=== PATIENT | male | born 1925 | race Caucasian/White ===

== ENCOUNTER 2016-07-01 13:04 | Inpatient (IN) ==
--- NOTE | 2016-07-01 13:33 | EKG Report ---
Stationary ECG Study [facility] ER Test Date: 07/01/2016 1:16 PM Pat Name: IMAN AMADO Department: Room: Gender: M Utility Person: : 1925 Requested by: Harshad Dill Order Number: [id number] Reading MD: JOVITA SANCHEZ Intervals [place] Rate: 40 P: 999 LA: 0 QRS: -58 QRSD: 154 T: -3 QT: 473 QTc: 404 Interpretive Statements ATRIAL FIBRILLATION WITH SLOW VENTRICULAR RESPONSE INDETERMINATE AXIS RIGHT BUNDLE BRANCH BLOCK LEFT ANTERIOR FASCICULAR BLOCK Electronically Signed On 07-06-16 11:18:44 CDT by JOVITA SANCHEZ [email or web address]
--- NOTE | 2016-07-01 14:02 | XRay Report ---
XR chest 1V portable Indication: Shortness of breath. Comparison: Chest x-ray 07/01/2016; 1147 hours Technique: Portable AP chest was performed. Findings: No significant change in the appearance of the chest is demonstrated. Elevation of the right hemidiaphragm is noted and interstitial stranding and scattered airspace opacities overlying the right hemidiaphragm as well as present within the right cardiophrenic angle are unchanged. Lungs otherwise are clear. Sternal wires are unchanged. The cardiomediastinal silhouette is unchanged. Impression: 1. No adverse interval change in the chest. 07/01/2016 1:59 PM PROCEDURE INTERPRETED AT [facility] DEPARTMENT OF RADIOLOGY Final Report Signed by: Dr. Madhav Barrow
--- NOTE | 2016-07-01 14:04 | Emergency Department Note ---
Pietro Bender Hilary, am scribing for, and in the presence of, Harshad Austin MD 13:30. Geovanna Bender Phillip K, MD, personally performed the services described in this documentation, ascribed by Radha Westbrook in my presence, and it is both accurate and complete . Arrival - Arrival Chief Complaint: Shortness of Breath ED Nursing Triage Note: Brought in by EMS c/o pedal edema and 7 pound gain over 1 week-transferred from [facility] for further evaluation of CHF. Denies CP. +SOB with exertion. Mode of Arrival: Stretcher Limitations: No Limitations Source: Patient, Significant other (), RN Notes Reviewed Time Seen by Provider: 07/01/16 13:25 - History of Present Illness HPI Narrative: Pt is a 89 y/o male transferred from [facility] with c/o SOB and weight gain which onset a 1-2 weeks ago. Pt confirms SOB, weight gain, Cough, DUEÑAS, and ankle swelling but denies chest pain or abdominal pain. Pt is at home on oxygen and has been sleeping in his recliner for a few weeks and his reports he has gained 7lbs in 2 weeks. No other complaints or problems stated in the ED. Pt has a PMHx of HTN, CHF, and COPD. Onset (ago): week(s) Allergies/Adverse Reactions: Allergies Allergy/AdvReac Type Severity Reaction Status Date / Time No Known Allergies Allergy Verified 07/01/16 13:13 Home Medications: Home Medications Medication Instructions Recorded Confirmed Type Albuterol/Ipratropium Neb [Duoneb] 3 ml RESP TX TID 07/01/16 07/01/16 History Allopurinol [Allopurinol] 300 mg PO QAM 07/01/16 07/01/16 History Aspirin EC Tab 81 mg PO QAM 07/01/16 07/01/16 History Bisoprolol Fumarate 2.5 - 5 mg PO QAM 07/01/16 07/01/16 History Budesonide [Pulmicort] 1 mg INH BID 07/01/16 07/01/16 History Cholecalciferol (Vitamin D3) 1,000 unit PO QAM 07/01/16 07/01/16 History [Vitamin D3] Cyanocobalamin (Vitamin B-12) 2,500 mcg SL QAM 07/01/16 07/01/16 History [Vitamin B-12] Digoxin [Digoxin] 125 mcg PO QAM 07/01/16 07/01/16 History Famotidine/Ca Carb/Mag Hydrox 1 tablet PO DAILY PRN 07/01/16 07/01/16 History [Pepcid Complete Chew Tab] Finasteride [Finasteride] 5 mg PO QAM 07/01/16 07/01/16 History Furosemide [Furosemide] 80 mg PO QAM 07/01/16 07/01/16 History Isosorbide Mononitrate [Isosorbide 30 mg PO QAM 07/01/16 07/01/16 History Mononitrate ER] Levothyroxine Tab [Synthroid Tab] 75 mcg PO QAM 07/01/16 07/01/16 History Loratadine Tab [Claritin Tab] 10 mg PO QAM 07/01/16 07/01/16 History Losartan Potassium 25 mg PO QAM 07/01/16 07/01/16 History Montelukast Tab [Singulair Tab] 10 mg PO BEDTIME 07/01/16 07/01/16 History Potassium Chloride 20 meq PO BID 07/01/16 07/01/16 History Tamsulosin [Flomax] 0.4 mg PO QAM 07/01/16 07/01/16 History dilTIAZem HCl [Dilt-Xr] 120 mg PO BID 07/01/16 07/01/16 History Review of System - Review of System 12 point system: reviewed and no additional remarkable complaints except as stated - Review of System Constitutional: Present: weight gain. Absent: fever Respiratory: Present: cough Cardiovascular: Present: dyspnea on exertion. Absent: chest pain Gastrointestinal: Absent: abdominal pain Musculoskeletal: Present: joint swelling (ankle swelling) Neurological: Present: headache Medical,Surgical,& Family Hx - Medical History Cardio: History of: CHF, Hypertension Respiratory: History of: COPD - Social History Smoking Status: Never smoker Frequency of Alcohol Use: None Type of Drug Use: None Exam Vital Signs: Vital Signs Temperature 98.2 F 07/01/16 13:10 Pulse Rate 52 L 07/01/16 13:34 Respiratory Rate 26 H 07/01/16 13:34 Blood Pressure 135/55 07/01/16 13:34 O2 Sat by Pulse Oximetry 96 07/01/16 13:34 - General General appearance: alert, in no apparent distress - Head Head exam: Present: atraumatic, normocephalic - Eye Eye exam: Present: normal appearance, PERRL, EOMI - ENT ENT exam: Present: mucous membranes moist, TM's normal bilaterally. Absent: mucous membranes dry - Neck Neck exam: Present: full ROM, trachea midline. Absent: tenderness - Chest Chest inspection: Present: symmetric chest wall rise. Absent: tenderness - Respiratory Respiratory exam: Present: rales - Cardiovascular Cardiovascular exam: Present: normal rhythm, bradycardia - Abdominal Exam Abdominal exam: Present: soft. Absent: distention - Extremities Exam Extremities exam: Present: full ROM, pedal edema (3+ pedal edema) - Back Exam Back exam: Present: full ROM. Absent: tenderness - Neurological Exam Neurological exam: Present: alert, oriented X3, CN II-XII intact. Absent: motor sensory deficit - Psychiatric Psychiatric exam: Present: normal affect, normal mood - Skin Skin exam: Present: warm, dry, intact, normal color. Absent: rash Course Course Narrative: Patient discussed with Dr. Youssef and the hospitalist. We will check a Lanoxin level in the ED. I feel that his bradycardia due to the bisoprolol and Lanoxin. Results - Labs CBC & BMP: 07/01/16 14:23 07/01/16 14:23 Lab Results: I have reviewed the patients labs Labs: Laboratory Tests 07/01/16 14:23 WBC 8.7 RBC 3.90 Hgb 12.8 L Hct 39.2 L Baso % (Auto) 0.9 H Laboratory Tests 07/01/16 07/01/16 14:23 14:23 BUN 61 H Creatinine 2.30 H BUN/Creatinine Ratio 26.00 H Glucose 125 H Magnesium 3.0 H B-Natriuretic Peptide 234 H Total Protein 6.0 L - Diagnostic Findings Procedure: Chest x-ray: report reviewed by me (1. No adverse interval change in the chest.) Disposition Clinical Impression: atrial fibrillation with bradycardia, Congestive heart failure, Peripheral edema Case discussed with: patient, patient's family Disposition: Still a Patient Condition: Guarded
[2016-07-01 14:40] LABS: Basophils # 0.1 10*3/uL (0.0-0.2); Basophils % 0.9 % (0.0-0.8); Eosinophils # 0.2 10*3/uL (0.0-0.87); Eosinophils % 2.4 % (0.00-10.9); Hematocrit 39.2 VOL% (42.0-52.0); Hemoglobin 12.8 GM/DL (14.0-18.0); Immature Granulocytes % 0.5 %; Immature Granulocytes Absolute 0.04 #; Lymphocytes # 2.3 10*3/uL (1.4-4.0); Lymphocytes % 26.1 % (21.2-54.2); Mean Corpuscular HGB Conc 32.7 GM/DL (32-36); Mean Corpuscular Hemoglobin 33 PG (27-34); Mean Corpuscular Volume 100.5 FL (87-102); Mean Platelet Volume 10.3 FL (9.6-12.0); Monocytes # 0.6 10*3/uL (0.11-0.8); Neutrophils # 5.5 10*3/uL (1.4-7.4); Neutrophils % 63.1 % (38.7-73.9); Platelet Count 216 T/CUMM (130-400); Red Cell Distribution Width 14.8 % (9.3-17.3); White Blood Count 8.7 T/CUMM (4-12)
[2016-07-01] MEDS ORDERED: ACETAMINOPHEN 325 MG TABLET PO PRN ×2 (15:05)
[2016-07-01] MEDS ORDERED: DOCUSATE SODIUM 100 MG CAPSULE PO PRN (15:05)
[2016-07-01] MEDS ORDERED: guaiFENesin/DM ER 600-30 MG TABLET PO PRN (15:05)
[2016-07-01] MEDS ORDERED: ONDANSETRON 4 MG/2 ML VIAL IV PRN (15:05)
[2016-07-01] MEDS ORDERED: MORPHINE 2 MG/1 ML SYRINGE IV PRN (15:05)
[2016-07-01] MEDS ORDERED: diphenhydrAMINE CAP 25 MG CAPSULE PO PRN (15:05)
[2016-07-01] MEDS ORDERED: FAMOTIDINE 20 MG TABLET PO PRN (15:13)
[2016-07-01 15:19] LABS: Alanine Aminotransferase 18 U/L (16-61); Albumin 3.5 G/DL (3.4-5.0); Alkaline Phosphatase 63 U/L (45-117); Aspartate Amino Transferase 13 U/L (0-37); Blood Urea Nitrogen 61 MG/DL (7-18); Glucose 125 MG/DL (74-106); Potassium 5.1 MMOL/L (3.5-5.1); Sodium 136 MMOL/L (136-145); Troponin I Only < 0.015 NG/ML (0.00-0.045)
--- NOTE | 2016-07-01 15:38 | Hospitalist History & Physical ---
Assessment and Plan - Time spent with patient Time spent with patient: Greater than 30 minutes (I saw and examed pt in his room. I reviewed his lab results. I reviewed his OSH lab results and report. Time spent: 55 minutes.) (1) Acute on chronic congestive heart failure Status: Acute Assessment and plan: Acute on chronic CHF in a setting of renal failure. Check echo. Consult Cardiology. Daily weight, monitor I&O. IV lasix one dose today. Further diuretics choice per Cardiology and Nephrology. Current Visit: Yes (2) Acute renal failure Status: Acute Assessment and plan: Monitor BUN/Cr. US kidney in am. Consult Nephrology in am. Current Visit: Yes (3) Atrial fibrillation Status: Acute Assessment and plan: Consult cardiology to see if pt is a good candidate to start anticoagulation. Current Visit: Yes (4) Bradycardia Status: Acute Assessment and plan: Tele monitoring. Hold home meds beta karen. Current Visit: Yes (5) Hypertension Status: Acute Assessment and plan: Resume other home meds appropriately. Monitor BP. Current Visit: Yes (6) COPD (chronic obstructive pulmonary disease) Status: Acute Assessment and plan: Resume home meds. Current Visit: Yes (7) Peripheral edema Status: Acute Assessment and plan: Consult Cardiology and Nephrology for diuretics choice. Current Visit: Yes History of Present Illness Chief complaint: Shortness of breath History of present illness: Mr. Valderrama is a 89 year old male with HTN CHF COPD former smoker developed worsening shortness of breath along with ankle, foot and leg swelling during past two weeks. Pt gained about 7 pounds. Pt can not sleep flat in bed. Has some cough, No fever, wheezing, chest pain, N/V/D, abdominal pain, dysuria or rash. Urine output is ok. No other major discomfort complaints. Upon ER eval at OSH, he was found to have atrial fibrillation with bradycardia. He was then sent to our ER for further eval. ROS: A 10 point system review is negative except listed as above. Allergy: NKDA PMH: HTN CHF COPD Past surgical history: Cardiac bypass surgery Family history: HTN Social history: Living at home. Deny current smoking, drinking or illicit drug usage. Current home meds: See med recs. Home Medications Medication Instructions Recorded Confirmed Type Albuterol/Ipratropium Neb [Duoneb] 3 ml RESP TX TID 07/01/16 07/01/16 History Allopurinol [Allopurinol] 300 mg PO QAM 07/01/16 07/01/16 History Aspirin EC Tab 81 mg PO QAM 07/01/16 07/01/16 History Bisoprolol Fumarate 2.5 - 5 mg PO QAM 07/01/16 07/01/16 History Budesonide [Pulmicort] 1 mg INH BID 07/01/16 07/01/16 History Cholecalciferol (Vitamin D3) 1,000 unit PO QAM 07/01/16 07/01/16 History [Vitamin D3] Cyanocobalamin (Vitamin B-12) 2,500 mcg SL QAM 07/01/16 07/01/16 History [Vitamin B-12] Digoxin [Digoxin] 125 mcg PO QAM 07/01/16 07/01/16 History Famotidine/Ca Carb/Mag Hydrox 1 tablet PO DAILY PRN 07/01/16 07/01/16 History [Pepcid Complete Chew Tab] Finasteride [Finasteride] 5 mg PO QAM 07/01/16 07/01/16 History Furosemide [Furosemide] 80 mg PO QAM 07/01/16 07/01/16 History Isosorbide Mononitrate [Isosorbide 30 mg PO QAM 07/01/16 07/01/16 History Mononitrate ER] Levothyroxine Tab [Synthroid Tab] 75 mcg PO QAM 07/01/16 07/01/16 History Loratadine Tab [Claritin Tab] 10 mg PO QAM 07/01/16 07/01/16 History Losartan Potassium 25 mg PO QAM 07/01/16 07/01/16 History Montelukast Tab [Singulair Tab] 10 mg PO BEDTIME 07/01/16 07/01/16 History Potassium Chloride 20 meq PO BID 07/01/16 07/01/16 History Tamsulosin [Flomax] 0.4 mg PO QAM 07/01/16 07/01/16 History dilTIAZem HCl [Dilt-Xr] 120 mg PO BID 07/01/16 07/01/16 History Allergies Allergy/AdvReac Type Severity Reaction Status Date / Time No Known Allergies Allergy Verified 07/01/16 13:13 Medical,Surgical,& Family Hx - Medical History Cardio: History of: CHF, Hypertension Respiratory: History of: COPD - Social History Smoking Status: Never smoker Frequency of Alcohol Use: None Type of Drug Use: None 12 point system: reviewed and no additional remarkable complaints except as stated Exam - Constitutional Vitals: Period Temp Pulse Resp BP Sys/Merino Pulse Ox Last 24 Hr 22 Exam: GENERAL: Lying in bed with head elevated for about 30 degree. AAOx3. HEENT: Pupils equally round and reactive to light, conjunctivae clear.Oropharynx pink, with moist mucous membranes. Normal lips, teeth and gums. NECK: Supple without mass. HEART: Irregularly irregular, no gallops. CHEST: Normal shape, fair air movement, no retractions. LUNGS: Decreased breath sound at b/l lower lobes. ABDOMEN: Soft, nontender, and no hepatosplenomegaly. SKIN: No rash. Pale. Non pitting edema on b/l legs. NEURO: No gross motor deficits noted Results - Labs CBC & BMP: 07/01/16 14:23 07/01/16 14:23
[2016-07-01] MEDS: ALBUTEROL/IPRATROPIUM 3 ML NEB RESP TX SCH ×2 (15:55→19:20)
[2016-07-01] MEDS ORDERED: FUROSEMIDE 40 MG/4 ML VIAL IV SCH (16:00)
--- NOTE | 2016-07-01 16:02 | Ultrasound Report ---
History: Lower extremity edema Date: 07/01/2016 Study: Bilateral lower extremity Doppler venous study Comparison exam: No previous Color Doppler, wave form analysis, and compression analysis of the deep veins of both lower extremities from the common femoral vein level through the popliteal vein level shows that the veins are readily compressible. There is no abnormal intraluminal material to suggest thrombus. Waveform analysis is unremarkable. Ultrasound images were captured and archived Impression: Normal bilateral lower extremity color flow venous Doppler study. No evidence of acute DVT PROCEDURE INTERPRETED AT [facility] DEPARTMENT OF RADIOLOGY Final Report Signed by: Dr. Rakel King
--- NOTE | 2016-07-01 16:37 | Ultrasound Report ---
Exam: US renal Bilateral Date: 07/01/2016 3:51 PM Comparison: 07/02/2013 Indication: Renal failure Technique:[Multiple transabdominal real-time scans were obtained THE kidneys. Ultrasound images were captured and stored. Color flow scans were obtained.] Findings: The right kidney measures 134 x 58 x 55 mm. The left kidney measures 114 x 67 x 51 mm. No hydronephrosis with increased parapelvic fat deposition with generalized cortical loss. Multiple simple appearing renal cysts are noted including a 38 mm upper pole and 50 mm lower pole right and 34 mm and 18 mm mid pole left renal cysts. Color flow documented in the kidneys. 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 No hydronephrosis with multiple simple appearing renal cysts. PROCEDURE INTERPRETED AT [facility] DEPARTMENT OF RADIOLOGY Final Report Signed by: Dr. Fernanda Boswell
[2016-07-01] MEDS: PANTOPRAZOLE 40 MG TABLET PO SCH (18:11)
[2016-07-01] MEDS: FUROSEMIDE 40 MG/4 ML VIAL IV SCH (18:11)
--- NOTE | 2016-07-01 18:45 | Cardiology Consult Note ---
Assessment and Plan - Time spent with patient Time spent with patient: Greater than 30 minutes (1) Ascites Status: Acute Assessment and plan: This may be related to right heart failure or pulmonary hypertension. We will get ultrasound of the abdomen and follow-up on his echocardiogram for evidence of portal hypertension. Current Visit: Yes (2) Pulmonary hypertension Status: Acute Assessment and plan: This is somewhat chronic and certainly may now be exacerbating his edema and what may be ascites. He is had this previously and was significant before. Current Visit: Yes (3) Elevated brain natriuretic peptide (BNP) level Status: Acute Assessment and plan: This may be multifactorial. This may indicate left ventricular dysfunction or diastolic dysfunction which by history he does have. His chest x-ray does not reveal overt cardiovascular congestion though. Other issues may be his renal dysfunction and poorly hypertension. Current Visit: Yes (4) Bradycardia Status: Acute Assessment and plan: This may be secondary to his digoxin which has been stopped. Current Visit: Yes (5) Hypertension Status: Chronic Assessment and plan: At present this is fairly stable we will monitor. Current Visit: Yes (6) COPD (chronic obstructive pulmonary disease) Status: Chronic Assessment and plan: This is chronic and certainly exacerbate poorly hypertension. He is on home oxygen. Current Visit: Yes (7) Atrial fibrillation Status: Acute Assessment and plan: The exact duration of this is unknown. We'll try to ECGs from Dr. Richardson's office. Current Visit: Yes (8) Chronic renal insufficiency Status: Chronic Assessment and plan: This is chronic and dates back previously. Current Visit: Yes (9) Coronary artery disease Status: Chronic Assessment and plan: Clinically this is stable without angina symptomatology or anginal equivalent. Current Visit: Yes (10) History of coronary artery bypass graft Status: Chronic Assessment and plan: He had this in 2004 as discussed in history present illness. Current Visit: Yes (11) Abnormal ECG Status: Acute Current Visit: Yes (12) Right bundle branch block Status: Acute Current Visit: Yes (13) Left anterior fascicular block Status: Acute Current Visit: Yes (14) Peripheral edema Status: Acute Current Visit: Yes History of Present Illness - Data of Consult Patient: new to practice Consult date: 07/01/16 Requesting Physician: Lefty Haywood Primary care physician: Roman Richardson - Consult Narrative Reason for consult: short of breath History of present illness: Mr. Valderrama is a 89 year old male who presented to the emergency room having some progressive shortness of breath PND or orthopnea and lower extremity edema. He also states that he has abdomen has been increasing in girth and his weight is been increasing. He was recently seen by Dr. Richardson his PCP and increase his Lasix without any improvement. He presented to the emergency room with these complaints where he was evaluated. He denied any chest pain or anginal equivalent. He's had no GI complaints. In the emergency room his CBC was unremarkable. His chemistries revealed his potassium in the upper limits of normal with elevated magnesium and a creatinine of 2.3 BUN is 61. His troponin was nondetectable with a BNP of 234. History Mahendra level was 1.6. Cardiopulmonary abnormalities. It appears that his chest x-ray does not indicate any acute cardiopulmonary abnormalities. He has a persistently elevated right hemidiaphragm. His venous Doppler study was unremarkable. His ECG reveals atrial fibrillation with slow ventricular response. Slow ventricular response may be related to his digoxin. We'll check his thyroid function. We'll await his echocardiogram results. In reviewing some of his old medical records he appears to be in the hospital with episodes of heart failure turned out to be probably diastolic left ventricular dysfunction as well as significant if not severe pulmonary hypertension. He had been on home oxygen and increased use of his oxygen last few days. He has had prior coronary disease and bypass surgery February 2000 following the LAD, and apparently a sequential graft to the circumflex OM and right PL branch. Based on the Doppler report though this could've actually been 2 separate vein grafts. CC: Lefty Haywood MD - Home Medications and Allergies Home Medications: Home Medications Medication Instructions Recorded Confirmed Type Albuterol/Ipratropium Neb [Duoneb] 3 ml RESP TX TID 07/01/16 07/01/16 History Allopurinol [Allopurinol] 300 mg PO QAM 07/01/16 07/01/16 History Aspirin EC Tab 81 mg PO QAM 07/01/16 07/01/16 History Bisoprolol Fumarate 2.5 - 5 mg PO QAM 07/01/16 07/01/16 History Budesonide [Pulmicort] 1 mg INH BID 07/01/16 07/01/16 History Cholecalciferol (Vitamin D3) 1,000 unit PO QAM 07/01/16 07/01/16 History [Vitamin D3] Cyanocobalamin (Vitamin B-12) 2,500 mcg SL QAM 07/01/16 07/01/16 History [Vitamin B-12] Digoxin [Digoxin] 125 mcg PO QAM 07/01/16 07/01/16 History Famotidine/Ca Carb/Mag Hydrox 1 tablet PO DAILY PRN 07/01/16 07/01/16 History [Pepcid Complete Chew Tab] Finasteride [Finasteride] 5 mg PO QAM 07/01/16 07/01/16 History Furosemide [Furosemide] 80 mg PO BID 07/01/16 07/01/16 History Isosorbide Mononitrate [Isosorbide 30 mg PO QAM 07/01/16 07/01/16 History Mononitrate ER] Levothyroxine Tab [Synthroid Tab] 75 mcg PO 0700 07/01/16 07/01/16 History Loratadine Tab [Claritin Tab] 10 mg PO QAM 07/01/16 07/01/16 History Losartan Potassium 25 mg PO QAM 07/01/16 07/01/16 History Montelukast Tab [Singulair Tab] 10 mg PO BEDTIME 07/01/16 07/01/16 History Potassium Chloride 20 meq PO BID 07/01/16 07/01/16 History Tamsulosin [Flomax] 0.4 mg PO QAM 07/01/16 07/01/16 History dilTIAZem HCl [Dilt-Xr] 120 mg PO BID 07/01/16 07/01/16 History Allergies/Adverse Reactions: Allergies Allergy/AdvReac Type Severity Reaction Status Date / Time No Known Allergies Allergy Verified 07/01/16 13:13 Review of systems: Constitutional: Denies anorexia, chills, fatigue, fever, frequent falls, night sweats, weight gain, weight loss. He has been gaining weight with fluid. Eyes: Denies visual changes or loss of vision Ears: Denies decreased hearing, vertigo Nose, mouth and throat: Denies dysphagia, epistaxis, headaches, neck pain, tongue swelling, Neck: Denies thyromegaly or masses. No stiffness. History of hypothyroidism. Cardiovascular: as per HPI Respiratory: As noted in history of present illness he is had dyspnea on exertion, PND or orthopnea. Denies cough hemoptysis, wheezing, snoring Gastrointestinal: Denies abdominal pain, constipation, dyspepsia, dysphagia, hematemesis, hematochezia, melena, nausea, vomiting. He has been having increased abdominal girth. Genitourinary: Denies dysuria, hematuria, nocturia Musculoskeletal: Denies arthralgias, joint swelling, muscle weakness, myalgias Neurological: denies abnormal speech, confusion, convulsions, frequent falls, headaches, memory loss, syncope. He does note that he has a little balance issues at times. Psychiatric: Denies anxiety, confusion, depression Endocrine: Denies cold intolerance, fatigue, heat intolerance. Has a history of hypothyroidism. He is on replacement therapy. Hematologic/Lymphatic: Denies easy bleeding, easy bruising Dermatologic: Denies Rash, itching, shingles Medical,Surgical,& Family Hx - Medical History Cardio: History of: CHF, CAD, Hypertension Psychological: History of: Depression Neurology: No history of: Cerebrovascular Accident, Dementia, Seizures HEENT: No history of: Eye Problem Endocrine: History of: Thyroid Disorder Respiratory: History of: COPD, Pulmonary Hypertension, 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) Renal: History of: Renal Failure (chronic element of renal insufficiency.) Genitourinary: History of: Kidney Stones Gastrointestinal: History of: GI Problems (constipation) No history of: Gastrointestinal Bleed, Hepatitis, Liver Problems Musculoskeletal: History of: Back/Neck Problems Hematology: No history of: Anemia, Blood Disorders - Surgical History Cardiac Surgeries: Sugical HX of: Cardiac Surgery (2004 - cabg) Thoracic Surgeries: Surgical HX of;: Lithotripsy HEENT Surgeries: Surgical HX of: Tonsilectomy & Adenoidectomy Abdominal Surgeries: Surgical HX of: Abdominal Surgery (2014 - Peritoneal cavity infection - [place]) - Family History Family History: Reports;: Family Cancer (mother - colon and breast), Family Heart Disease (father -), Family Stroke (mother?) Denies;: Family Diabetes, Family Hematology, Family Hypertension, Family Psychiatric Problems - Social History Smoking Status: Never smoker Frequency of Alcohol Use: None Type of Drug Use: None Marital Status: Lives With:: Spouse Functional capacity: independent ambulation Physical Examination Vital Signs Temp Pulse Resp BP Pulse Ox 98.2 F 55 L 22 146/56 92 L 07/01/16 13:10 07/01/16 13:10 07/01/16 13:10 07/01/16 13:10 07/01/16 13:10 Other: General appearance: Over weight, no acute distress Head exam: normal inspection, atraumatic Eye exam: Pupils are equal and reactive. EOMI. There is no trauma. Moist mucous membranes. Ear exam: Anatomically normal. Normal auditory acuity to conversation. Oral exam: No significant oral lesions. Chronic dental issues. Neck exam: normal inspection no JVD. No carotid bruit. Trachea is in midline. Respiratory exam: clear to auscultation bilaterally posteriorly and anteriorly with good air movement. No rales, rhonchi or wheezes. Cardiovascular exam: regular rate and rhythm, with 2/6 systolic murmur over the right and left upper chest but no gallop or rub. No precordial lift. No bruits over the major arteries. Chest wall/torso: Anatomically normal. No tenderness, deformity Peripheral Pulses: One to 2 + throughout. GI/Abdominal exam: normal bowel sounds, soft and nontender, no abdominal bruits or pulsatile masses. His abdomen is protuberant in question ascites. Musculoskeletal/Extremities exam: One to 2+ pitting pretibial and ankle edema, atraumatic Neurological exam: alert, oriented X3. There is no gross neurologic deficits. Psychiatric exam: normal affect, normal mood. Cognitive function is grossly intact. Skin exam: normal color, warm. No rashes or other skin lesions. Result/EKG - Labs CBC & BMP: 07/01/16 14:23 07/01/16 14:23 Labs: Laboratory Results - last 24 hr 07/01/16 07/01/16 07/01/16 14:23 14:23 14:23 WBC 8.7 RBC 3.90 Hgb 12.8 L Hct 39.2 L MCV 100.5 MCH 33 MCHC 32.7 RDW 14.8 Plt Count 216 MPV 10.3 Neut % (Auto) 63.1 Lymph % (Auto) 26.1 Edmunds % (Auto) 7.0 Eos % (Auto) 2.4 Baso % (Auto) 0.9 H Neut # (Auto) 5.5 Lymph # (Auto) 2.3 Edmunds # (Auto) 0.6 Eos # (Auto) 0.2 Baso # (Auto) 0.1 Immature Gran % 0.5 Nucleated RBC % 0.0 Immature Gran # 0.04 Nucleated RBCs # 0.00 Sodium 136 Potassium 5.1 Chloride 101 Carbon Dioxide 28 Anion Gap 12.1 BUN 61 H Creatinine 2.30 H GFR Calculation 29 BUN/Creatinine Ratio 26.00 H Glucose 125 H Calculated Osmolality 289.0 Calcium 9.0 Magnesium 3.0 H Total Bilirubin 0.80 AST 13 ALT 18 Alkaline Phosphatase 63 Troponin I < 0.015 B-Natriuretic Peptide 234 H Total Protein 6.0 L Albumin 3.5 Globulin 2.5 Albumin/Globulin Ratio 1.4 Digoxin 07/01/16 14:23 WBC RBC Hgb Hct MCV MCH MCHC RDW Plt Count MPV Neut % (Auto) Lymph % (Auto) Edmunds % (Auto) Eos % (Auto) Baso % (Auto) Neut # (Auto) Lymph # (Auto) Edmunds # (Auto) Eos # (Auto) Baso # (Auto) Immature Gran % Nucleated RBC % Immature Gran # Nucleated RBCs # Sodium Potassium Chloride Carbon Dioxide Anion Gap BUN Creatinine GFR Calculation BUN/Creatinine Ratio Glucose Calculated Osmolality Calcium Magnesium Total Bilirubin AST ALT Alkaline Phosphatase Troponin I B-Natriuretic Peptide Total Protein Albumin Globulin Albumin/Globulin Ratio Digoxin 1.60 - Impressions Impressions: Atrial fibrillation with slow ventricular response. He has a right bundle branch block with probable left anterior fascicular block.
[2016-07-01] MEDS: BUDESONIDE 0.5 MG/2 ML NEB RESP TX SCH (19:21)
[2016-07-01] MEDS: MONTELUKAST 10 MG TABLET PO SCH (20:34)
[2016-07-01] MEDS: POTASSIUM CHLORIDE 20 MEQ TABLET PO SCH (20:34)
[2016-07-02 04:08] LABS: Basophils % 0.5 % (0.0-0.8); Eosinophils # 0.3 10*3/uL (0.0-0.87); Eosinophils % 3.5 % (0.00-10.9); Hematocrit 38.8 VOL% (42.0-52.0); Hemoglobin 12.5 GM/DL (14.0-18.0); Immature Granulocytes % 0.6 %; Immature Granulocytes Absolute 0.05 #; Lymphocytes # 2.1 10*3/uL (1.4-4.0); Lymphocytes % 26.3 % (21.2-54.2); Mean Corpuscular HGB Conc 32.2 GM/DL (32-36); Mean Corpuscular Hemoglobin 33 PG (27-34); Mean Corpuscular Volume 102.1 FL (87-102); Mean Platelet Volume 10.1 FL (9.6-12.0); Monocytes # 0.6 10*3/uL (0.11-0.8); Neutrophils # 4.8 10*3/uL (1.4-7.4); Neutrophils % 61.1 % (38.7-73.9); Platelet Count 201 T/CUMM (130-400); Red Cell Distribution Width 14.5 % (9.3-17.3); White Blood Count 7.9 T/CUMM (4-12)
[2016-07-02 04:34] LABS: Calcium 8.7 MG/DL (8.5-10.1); Osmolality,Calculated 299.1 MOS/KG (273-304); Potassium 4.6 MMOL/L (3.5-5.1)
[2016-07-02] MEDS: BUDESONIDE 0.5 MG/2 ML NEB RESP TX SCH ×2 (07:43→19:08)
[2016-07-02] MEDS: ALBUTEROL/IPRATROPIUM 3 ML NEB RESP TX SCH ×3 (07:43→19:07)
--- NOTE | 2016-07-02 08:49 | XRay Report ---
XR chest 2V Indication: Shortness of breath Comparison: 01 July 2016 Findings: The heart and mediastinum are stable in size and configuration. The pulmonary vascularity is decreased with decrease in interstitial lung density. No other lung infiltrates, effusions, pneumothorax or other abnormality is demonstrated. Impression: Findings suggest improving cardiac decompensation. PROCEDURE INTERPRETED AT [facility] DEPARTMENT OF RADIOLOGY Final Report Signed by: Dr. Last Gray
[2016-07-02] MEDS ORDERED: LEVOTHYROXINE 75 MCG TABLET PO SCH (09:00)
--- NOTE | 2016-07-02 09:12 | EKG Report ---
Stationary ECG Study [facility] Test Date: 07/02/2016 9:12:02 AM Pat Name: IMAN AMADO Department: Room: 283 Gender: M Furniture Mover: GARDENIA : 1925 Requested by: Flora Miller Order Number: [id number] Reading MD: JOVITA SANCHEZ Intervals [place] Rate: 66 P: 999 NH: 0 QRS: -67 QRSD: 157 T: 10 QT: 438 QTc: 451 Interpretive Statements ATRIAL FIBRILLATION RIGHT BUNDLE BRANCH BLOCK LEFT ANTERIOR FASCICULAR BLOCK Electronically Signed On 07-06-16 11:49:43 CDT by JOVITA SANCHEZ [email or web address]
[2016-07-02] MEDS: FINASTERIDE 5 MG TABLET PO SCH (09:26)
[2016-07-02] MEDS: CYANOCOBALAMIN 500 MCG TABLET PO SCH ×2 (09:26→09:41)
[2016-07-02] MEDS: ALLOPURINOL 300 MG TABLET PO SCH (09:26)
[2016-07-02] MEDS: ASPIRIN EC 81 MG TABLET PO SCH (09:26)
[2016-07-02] MEDS: PANTOPRAZOLE 40 MG TABLET PO SCH (09:26)
[2016-07-02] MEDS: LORATADINE 10 MG TABLET PO SCH (09:26)
[2016-07-02] MEDS: ISOSORBIDE MONONITRATE 30 MG TABLET PO SCH (09:27)
[2016-07-02] MEDS: CHOLECALCIFEROL 1,000 UNIT TABLET PO SCH (09:27)
[2016-07-02] MEDS: FUROSEMIDE 40 MG/4 ML VIAL IV SCH ×2 (09:27→17:52)
[2016-07-02] MEDS: POTASSIUM CHLORIDE 20 MEQ TABLET PO SCH ×2 (09:27→21:33)
[2016-07-02] MEDS: TAMSULOSIN 0.4 MG CAPSULE PO SCH (09:27)
--- NOTE | 2016-07-02 09:56 | Ultrasound Report ---
Abdominal ultrasound Indication: Ascites Findings: The liver is normal in size and echogenicity. The gallbladder is fluid-filled without evidence of stones or sludge. The gallbladder wall thickness is 3.2 mm. The common bile duct measures 5.0 mm. The visualized portion of the pancreas appear within normal limits Multiple cysts are present on both kidneys, largest on the right measures up to 5.0 cm. The largest on the left measures up to 2.9 cm The kidneys normal in size without hydronephrosis or other abnormality. The right renal length is 13.1 cm. Left renal length is 11.2 cm. Spleen, aorta and IVC appear within normal limits. No free fluid or free air seen. Impression: Simple appearing renal cysts. No other evidence of abnormality demonstrated. Ultrasound images stored and captured. PROCEDURE INTERPRETED AT [facility] DEPARTMENT OF RADIOLOGY Final Report Signed by: Dr. Last Gray
[2016-07-02 10:00] LABS: Apearance,Urine CLEAR (Clear); Bilirubin,Urine Negative (Negative); Blood, Urine Small mg/dL (Negative); Glucose,Urine (UA) Negative (Negative); Hyaline Casts,Urine 1 /LPF (0-3); Ketones,Urine Negative (Negative); Mucus,Urine Occasional /LPF (Occasional); Nitrite,Urine Negative (Negative); Protein,Urine Negative; RBC,Urine <1 /HPF (0-4); Urine Color Straw (Yellow); Urine Specific Gravity 1.004 (1.001-1.035); Urine Urobilinogen < 2.0 EU/DL (0.2-1.0); WBC,Urine 3 /HPF (0-6)
--- NOTE | 2016-07-02 10:57 | Physician Query Form ---
CLICK EDIT DOCUMENT TO SELECT QUERY ANSWER --> OK --> SIGN Mey Barrow RN, CCDS Certified Clinical [employer] Officer W) [phone] (f) [phone] [email or web address] PROVIDERS: Make your selection(s) from the choices in EACH section by typing an "x" and enter comments in the comment section. Please use your independent medical judgment in providing your response. This request does not imply that any particular answer is desired or expected. CLINICAL INDICATORS: (Providers should not edit this section) The medical record indicates that the patient was admitted with CHF, "he had been on home oxygen and increased use of his oxygen last few days"; patient was admitted and placed on 2 liters per NC. Based on the above, could you clarify the appropriate diagnosis, if significant , that supports the above abnormalities and additional evaluation, monitoring, and/or treatment rendered: ( ) Patient is not being monitored or treated for chronic respiratory failure ( x) Patient is being monitored or treated for chronic respiratory failure ( ) Other, please specify: ( ) Clinically unable to determine COMMENTS: Use of terms such as suspected, likely, or probable (associated with a specific diagnosis that is being evaluated, monitored, or treated as if it exists) are acceptable and can be restated in the discharge summary if not ruled out. MTDD
--- NOTE | 2016-07-02 15:12 | Hospitalist Progress Note ---
Assessment and Plan - Time spent with patient Time spent with patient: Greater than 30 minutes (1) Acute on chronic congestive heart failure Status: Acute Assessment and plan: IV lasix for now. F/u echo result. Appreciate Cardiology assistance. Current Visit: Yes (2) Acute renal failure Status: Acute Assessment and plan: Monitor BUN/Cr. Check urine study per Nephrology. Appreciate Nephrology assistance. Current Visit: Yes (3) Atrial fibrillation Status: Acute Assessment and plan: Hold beta karen for now, HR is in 70s this afternoon. Cardiology f/u. Current Visit: Yes (4) Bradycardia Status: Acute Assessment and plan: Tele monitoring. Hold home meds beta karen. Current Visit: Yes (5) Hypertension Status: Chronic Assessment and plan: Resume other home meds appropriately. Monitor BP. Current Visit: Yes (6) COPD (chronic obstructive pulmonary disease) Status: Chronic Assessment and plan: Resume home meds. Continue home oxygen. Current Visit: Yes (7) Peripheral edema Status: Acute Assessment and plan: Consult Cardiology and Nephrology for diuretics choice. Current Visit: Yes (8) Chronic respiratory failure Status: Acute Assessment and plan: Continue oxygen. Current Visit: Yes Hospitalist: Subjective Interval history: 07/02/16: No overnight acute event. SOB feeling better. Good UOP. No fever, chest pain or abd pain. Family members in the room. Cardiology and Nephrology consulted. US abd ordered per Cards to eval ascites. Echo report pending. 07/01/16: Pt adm to our hospital due to worsening SOB, leg edema along with weight gain, new onset of Afib with bradycardia. Pt has CHF, CKD, HTN, CAD, COPD on home oxygen. Exam - Constitutional Vitals: Period Temp Pulse Resp BP Sys/Merino Pulse Ox Last 24 Hr 95.7 F-98.8 F 46-72 13-22 119-141/47-69 90-98 Exam: GENERAL: Lying in bed supine. On oxygen by ANGEL. AAOx3. HEENT: Pupils equally round and reactive to light, conjunctivae clear.Oropharynx pink, with moist mucous membranes. Normal lips, teeth and gums. NECK: Supple without mass. HEART: Irregularly irregular, no gallops. CHEST: Normal shape, fair air movement, no retractions. LUNGS: Decreased breath sound at b/l lower lobes. ABDOMEN: Soft, nontender, and no hepatosplenomegaly. SKIN: No rash. Pale. Non pitting edema on b/l legs. NEURO: No gross motor deficits noted Results - Labs CBC & BMP: 07/02/16 03:47 07/02/16 03:47
--- NOTE | 2016-07-02 15:53 | Nephrology Consult Note ---
History of Present Illness Chief complaint: Pt referred for "acute renal failure" History of present illness: Mr. Valderrama is a 89 year old male admitted with c/o increased abd swelling, and BLE edema unresponsive to increasing doses of lasix as high as 320mg every 8 hours. He has symptoms of severe BPH, with nocturia up to 10 times nightly. Early satiety likely represents an edematous gut and not absorbing po meds. Responding to IV lasix 80 bid. Renal u/s reveals right 13.4cm, L 11.4cm (a significant size discrepancy), cortical scarring, hx of nephrolithiasis x 2 at least in the past, bilat simple renal cysts. FeUrea (47%) indicates intrinsic renal process. 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 PMHx: COPD, Afib, HTN, CHF, pHTN (unknown degree), echocardiogram pending. Creatinine hx 1.6-3.2 in 2013, Currently 2.3->2.2 today for eGFR 30cc/min, BNP only 254. He has no BLE edema, which he probably should to have adequate preload required in pHTN. Poor po intake recently due to early satiety. Home Medications Medication Instructions Recorded Confirmed Type Albuterol/Ipratropium Neb [Duoneb] 3 ml RESP TX TID 07/01/16 07/01/16 History Allopurinol [Allopurinol] 300 mg PO QAM 07/01/16 07/01/16 History Aspirin EC Tab 81 mg PO QAM 07/01/16 07/01/16 History Bisoprolol Fumarate 2.5 - 5 mg PO QAM 07/01/16 07/01/16 History Budesonide [Pulmicort] 1 mg INH BID 07/01/16 07/01/16 History Cholecalciferol (Vitamin D3) 1,000 unit PO QAM 07/01/16 07/01/16 History [Vitamin D3] Cyanocobalamin (Vitamin B-12) 2,500 mcg SL QAM 07/01/16 07/01/16 History [Vitamin B-12] Digoxin [Digoxin] 125 mcg PO QAM 07/01/16 07/01/16 History Famotidine/Ca Carb/Mag Hydrox 1 tablet PO DAILY PRN 07/01/16 07/01/16 History [Pepcid Complete Chew Tab] Finasteride [Finasteride] 5 mg PO QAM 07/01/16 07/01/16 History Furosemide [Furosemide] 80 mg PO BID 07/01/16 07/01/16 History Isosorbide Mononitrate [Isosorbide 30 mg PO QAM 07/01/16 07/01/16 History Mononitrate ER] Levothyroxine Tab [Synthroid Tab] 75 mcg PO 0700 07/01/16 07/01/16 History Loratadine Tab [Claritin Tab] 10 mg PO QAM 07/01/16 07/01/16 History Losartan Potassium 25 mg PO QAM 07/01/16 07/01/16 History Montelukast Tab [Singulair Tab] 10 mg PO BEDTIME 07/01/16 07/01/16 History Potassium Chloride 20 meq PO BID 07/01/16 07/01/16 History Tamsulosin [Flomax] 0.4 mg PO QAM 07/01/16 07/01/16 History dilTIAZem HCl [Dilt-Xr] 120 mg PO BID 07/01/16 07/01/16 History Allergies Allergy/AdvReac Type Severity Reaction Status Date / Time No Known Allergies Allergy Verified 07/01/16 13:13 Medical,Surgical,& Family Hx - Medical History Cardio: History of: CHF, CAD, Hypertension Psychological: History of: Depression Neurology: No history of: Cerebrovascular Accident, Dementia, Seizures HEENT: No history of: Eye Problem Endocrine: History of: Thyroid Disorder Respiratory: History of: COPD, Pulmonary Hypertension, 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) Renal: History of: Renal Failure (chronic element of renal insufficiency.) Genitourinary: History of: Kidney Stones Gastrointestinal: History of: GI Problems (constipation) No history of: Gastrointestinal Bleed, Hepatitis, Liver Problems Musculoskeletal: History of: Back/Neck Problems Hematology: No history of: Anemia, Blood Disorders - Surgical History Cardiac Surgeries: Sugical HX of: Cardiac Surgery (2004 - cabg) Thoracic Surgeries: Surgical HX of;: Lithotripsy HEENT Surgeries: Surgical HX of: Tonsilectomy & Adenoidectomy Abdominal Surgeries: Surgical HX of: Abdominal Surgery (2014 - Peritoneal cavity infection - [place]) - Family History Family History: Reports;: Family Cancer (mother - colon and breast), Family Heart Disease (father -), Family Stroke (mother?) Denies;: Family Diabetes, Family Hematology, Family Hypertension, Family Psychiatric Problems - Social History Smoking Status: Never smoker Frequency of Alcohol Use: None Type of Drug Use: None Exam - Vital Signs Vital signs: Period Temp Pulse Resp BP Sys/Merino Pulse Ox Last 24 Hr 95.7 F-98.8 F 50-72 13-22 119-141/48-69 90-98 - General Appearance General appearance: well-developed, well-nourished, obese, chronically ill EENT: ATNC, PERRL, mucous membranes dry, hearing intact, vision intact, hearing diminished Neck: no JVD, no thyromegaly, no carotid bruit Respiratory: no kyphosis, clear Cardiology: no murmurs, no rub, no edema Gastrointestinal: normoactive bowel sounds, no tenderness (fluid level by percussion, likely ascites), distended Integumentary: no rash, warm and dry Neurologic: no focal deficit, no asterixis, alert and oriented x3 Musculoskeletal: no deformities, no erythema Psychiatric: mood/affect appropriate, cooperative Results - Labs CBC & BMP: 07/02/16 03:47 07/02/16 03:47 Assessment and Plan (1) AIN (acute interstitial nephritis) Problem details: urine eos very low sensitivity, but very specific. Most likely culprit in US 6 yrs running is PPIs. Status: Acute Assessment and plan: Stop protonix. Start H2 karen or cytotec. Current Visit: Yes (2) CKD (chronic kidney disease) stage 3, GFR 30-59 ml/min Status: Acute Assessment and plan: Renally dose all meds for eGFR approx 30cc/min. Avoid nephrotoxins to include NSAIDs, aminoglycosides and IV contrast if possible. Avoid overdiuresis in pHTN. Current Visit: Yes (3) Pulmonary hypertension Status: Acute Current Visit: Yes
--- NOTE | 2016-07-02 16:21 | Cardiology Progress Note ---
<Stephanie Lewis E - Last Filed: 07/02/16 16:14> Assessment and Plan - Time spent with patient Time spent with patient: Less than 30 minutes (1) Ascites Status: Acute Assessment and plan: This may be related to right heart failure or pulmonary hypertension. We will get follow-up on his echocardiogram for evidence of portal hypertension. His abdominal ultrasound showed simple appearing renal cysts with right renal length 13.1 cm and left renal length 11.2 cm, but no other evidence of abnormality. Current Visit: Yes (2) Atrial fibrillation Status: Acute Assessment and plan: The exact duration of this is unknown. We'll try to ECGs from Dr. Melgar's office. Current Visit: Yes (3) Bradycardia Status: Acute Assessment and plan: This may be secondary to his digoxin which has been stopped. This has improved today. Current Visit: Yes (4) Elevated brain natriuretic peptide (BNP) level Status: Acute Assessment and plan: This may be multifactorial. This may indicate left ventricular dysfunction or diastolic dysfunction which by history he does have. His chest x-ray does not reveal overt cardiovascular congestion though. Other issues may be his renal dysfunction and poorly hypertension. Current Visit: Yes (5) Pulmonary hypertension Status: Acute Assessment and plan: This is somewhat chronic and certainly may now be exacerbating his edema and what may be ascites. He is had this previously and was significant before. Current Visit: Yes (6) COPD (chronic obstructive pulmonary disease) Status: Chronic Assessment and plan: This is chronic and certainly exacerbate poorly hypertension. He is on home oxygen. Current Visit: Yes (7) Chronic renal insufficiency Status: Chronic Assessment and plan: This is chronic and dates back previously. Nephrology is following. Current Visit: Yes (8) Coronary artery disease Status: Chronic Assessment and plan: Clinically this is stable without angina symptomatology or anginal equivalent. Current Visit: Yes (9) History of coronary artery bypass graft Status: Chronic Assessment and plan: He had this in 02/13/2005 as discussed in history present illness. He received a LITTLE to the LAD and a vein graft to the circumflex marginal and right posterior lateral. Current Visit: Yes (10) Hypertension Status: Chronic Assessment and plan: At present this is fairly stable we will monitor. Current Visit: Yes (11) Abnormal ECG Status: Acute Current Visit: Yes (12) Right bundle branch block Status: Acute Current Visit: Yes (13) Left anterior fascicular block Status: Acute Current Visit: Yes (14) Peripheral edema Status: Acute Current Visit: Yes Cardiology - PN: Subj Interval history: MARKET DEVELOPMENT MANAGER: NONE REGULARLY (Dr. Calle in remote past, Dr. Harman performed CABG) PCP: DR. MELGAR Mr. Valderrama is seen today lying in bed in no acute distress. He continues to have some mild conversational dyspnea and lower extremity edema. He tells me he feels as if his abdominal and leg edema has improved since yesterday. He reports he is feeling somewhat better. He continues to receive large doses of Lasix but has not had overwhelming results. He is negative in his I&O's. His abdominal ultrasound showed simple appearing renal cysts with right renal length 13.1 cm and left renal length 11.2 cm, but no other evidence of abnormality. He denies chest pain or GI complaints. His digoxin continues to be held. He remains in atrial fibrillation with rates in the 60s-70s. An echocardiogram has been ordered and we will await these results. Exam (Progress Note) - Constitutional Vitals: Period Temp Pulse Resp BP Sys/Merino Pulse Ox Last 24 Hr 95.7 F-98.8 F 50-72 13-20 120-141/48-59 90-98 Exam: General: Present: Appears Well, No Apparent Distress. Pleasant and cooperative. Appears comfortable. HEENT: Present: PERRL, Normocephaly, atraumatic. Mucus Membranes Moist. No jaundice noted. Conjunctiva moist and clear, sclerae anicteric Neck: Present: Supple Neck, Midline Trachea, No Masses, No Bruit, No tenderness Cardiac: Present: Regular Rate and Rhythm, 2/6 systolic Murmur best appreciated at the RUSB and LUSB. Lungs: Present: Few bibasilar crackles posteriorly otherwise Clear to auscultation bilaterally, no wheeze, rhonchi, rales. Neuro: Present: Awake, alert, and oriented x3. Moves all extremities well without hemiparesis or paralysis. Grossly Intact. Absent: Resting Tremor, Essential Tremor Abdomen: Present: Soft, Active Bowel Sounds, No Masses, Non-Tender, Edematous. No abdominal bruit or thrill noted. Skin: Present: Clear. Absent: Rash, No skin breakdown. Back: Normal inspection, no vertebral tenderness. Musculoskeletal: Present: No Fluid Collection, No Pain, Normal Range of Motion Extremities: Present: Normal Gait, No Clubbing, No Cyanosis, Upper Extr. Pulses 2+, Lower Extr. Pulses 2+, 2+ pitting edema to BLE. Capillary refill less than 3 seconds. Result/EKG - Labs CBC & BMP: 07/02/16 03:47 07/02/16 03:47 Lab Results: I have reviewed the past 24 hour labs Labs: Laboratory Results - last 24 hr 07/02/16 07/02/16 07/02/16 03:47 03:47 03:47 WBC 7.9 RBC 3.80 Hgb 12.5 L Hct 38.8 L MCV 102.1 H MCH 33 MCHC 32.2 RDW 14.5 Plt Count 201 MPV 10.1 Neut % (Auto) 61.1 Lymph % (Auto) 26.3 [place] % (Auto) 8.0 Eos % (Auto) 3.5 Baso % (Auto) 0.5 Neut # (Auto) 4.8 Lymph # (Auto) 2.1 [place] # (Auto) 0.6 Eos # (Auto) 0.3 Baso # (Auto) 0.0 Immature Gran % 0.6 Nucleated RBC % 0.0 Immature Gran # 0.05 Nucleated RBCs # 0.00 Sodium 142 Potassium 4.6 Chloride 103 Carbon Dioxide 28 Anion Gap 15.6 H BUN 59 H Creatinine 2.20 H GFR Calculation 30 BUN/Creatinine Ratio 26.00 H Glucose 95 Calculated Osmolality 299.1 Calcium 8.7 Magnesium 3.0 H B-Natriuretic Peptide 254 H Urine Color Urine Appearance Urine pH Ur Specific [place] Urine Protein Urine Glucose (UA) Urine Ketones Urine Blood Urine Nitrate Urine Bilirubin Urine Urobilinogen Urine Leukocytes Urine RBC Urine WBC Hyaline Casts Urine Mucus Ur Culture Indicated? Urine Eosinophils Ur Random Creatinine U Random Total Protein Ur Random Urea Nitrogn 07/02/16 07/02/16 07/02/16 09:44 09:44 09:44 WBC RBC Hgb Hct MCV MCH MCHC RDW Plt Count MPV Neut % (Auto) Lymph % (Auto) [place] % (Auto) Eos % (Auto) Baso % (Auto) Neut # (Auto) Lymph # (Auto) [place] # (Auto) Eos # (Auto) Baso # (Auto) Immature Gran % Nucleated RBC % Immature Gran # Nucleated RBCs # Sodium Potassium Chloride Carbon Dioxide Anion Gap BUN Creatinine GFR Calculation BUN/Creatinine Ratio Glucose Calculated Osmolality Calcium Magnesium B-Natriuretic Peptide Urine Color Urine Appearance Urine pH Ur Specific [place] Urine Protein Urine Glucose (UA) Urine Ketones Urine Blood Urine Nitrate Urine Bilirubin Urine Urobilinogen Urine Leukocytes Urine RBC Urine WBC Hyaline Casts Urine Mucus Ur Culture Indicated? Urine Eosinophils Ur Random Creatinine 25 U Random Total Protein 10 Ur Random Urea Nitrogn 319 07/02/16 07/02/16 09:44 09:44 WBC RBC Hgb Hct MCV MCH MCHC RDW Plt Count MPV Neut % (Auto) Lymph % (Auto) [place] % (Auto) Eos % (Auto) Baso % (Auto) Neut # (Auto) Lymph # (Auto) [place] # (Auto) Eos # (Auto) Baso # (Auto) Immature Gran % Nucleated RBC % Immature Gran # Nucleated RBCs # Sodium Potassium Chloride Carbon Dioxide Anion Gap BUN Creatinine GFR Calculation BUN/Creatinine Ratio Glucose Calculated Osmolality Calcium Magnesium B-Natriuretic Peptide Urine Color Straw Urine Appearance Clear Urine pH 6.0 Ur Specific [place] 1.004 Urine Protein Negative Urine Glucose (UA) Negative Urine Ketones Negative Urine Blood Small Urine Nitrate Negative Urine Bilirubin Negative Urine Urobilinogen < 2.0 H Urine Leukocytes Trace Urine RBC <1 Urine WBC 3 Hyaline Casts 1 Urine Mucus Occasional Ur Culture Indicated? Not indicated Urine Eosinophils 2 Ur Random Creatinine U Random Total Protein Ur Random Urea Nitrogn - EKG EKG results: interpreted by me EKG shows: atrial fibrillation <YoussefSav Kristofer - Last Filed: 07/02/16 17:52> Assessment and Plan (1) Ascites Status: Acute Current Visit: Yes (2) Pulmonary hypertension Status: Acute Current Visit: Yes (3) Elevated brain natriuretic peptide (BNP) level Status: Acute Current Visit: Yes (4) Bradycardia Status: Acute Current Visit: Yes (5) Hypertension Status: Chronic Current Visit: Yes (6) COPD (chronic obstructive pulmonary disease) Status: Chronic Current Visit: Yes (7) Atrial fibrillation Status: Acute Current Visit: Yes (8) Chronic renal insufficiency Status: Chronic Current Visit: Yes (9) Coronary artery disease Status: Chronic Current Visit: Yes (10) History of coronary artery bypass graft Status: Chronic Current Visit: Yes (11) Abnormal ECG Status: Acute Current Visit: Yes (12) Right bundle branch block Status: Acute Current Visit: Yes (13) Left anterior fascicular block Status: Acute Current Visit: Yes (14) Peripheral edema Status: Acute Current Visit: Yes Cardiology - PN: Subj Interval history: Patient personally interviewed and examined and chart reviewed. I discussed the patient's case with Stephanie Lewis TEAROOM HOST/HOSTESS. I agree with the history, exam and assessment. Gen. the patient feels better. He's had a good diuresis today. His heart rates of been slow with some pulses and bradycardia. Is a question how much of this is from his digoxin. His heart rates are up this afternoon. Also is a little hypothyroid still. We are going to increase his levothyroxine and recheck his digits over the morning. Will hold him nothing by mouth for the possibility of the pacemaker tomorrow. I discussed this with the patient and his family. They're agreeable. We still await his echocardiogram. His ultrasound abdomen without ascites. Nephrology is evaluating the patient. He still has lower extremity edema but with out his response to his Lasix. Exam (Progress Note) - Constitutional Vitals: Period Temp Pulse Resp BP Sys/Merino Pulse Ox Last 24 Hr 95.7 F-98.8 F 50-72 16-20 120-141/49-65 90-98 Result/EKG - Labs CBC & BMP: 07/02/16 03:47 07/02/16 03:47 Labs: Laboratory Results - last 24 hr 07/02/16 07/02/16 07/02/16 03:47 03:47 03:47 WBC 7.9 RBC 3.80 Hgb 12.5 L Hct 38.8 L MCV 102.1 H MCH 33 MCHC 32.2 RDW 14.5 Plt Count 201 MPV 10.1 Neut % (Auto) 61.1 Lymph % (Auto) 26.3 [place] % (Auto) 8.0 Eos % (Auto) 3.5 Baso % (Auto) 0.5 Neut # (Auto) 4.8 Lymph # (Auto) 2.1 [place] # (Auto) 0.6 Eos # (Auto) 0.3 Baso # (Auto) 0.0 Immature Gran % 0.6 Nucleated RBC % 0.0 Immature Gran # 0.05 Nucleated RBCs # 0.00 Sodium 142 Potassium 4.6 Chloride 103 Carbon Dioxide 28 Anion Gap 15.6 H BUN 59 H Creatinine 2.20 H GFR Calculation 30 BUN/Creatinine Ratio 26.00 H Glucose 95 Calculated Osmolality 299.1 Calcium 8.7 Magnesium 3.0 H B-Natriuretic Peptide 254 H Free T4 TSH 3rd Generation Urine Color Urine Appearance Urine pH Ur Specific [place] Urine Protein Urine Glucose (UA) Urine Ketones Urine Blood Urine Nitrate Urine Bilirubin Urine Urobilinogen Urine Leukocytes Urine RBC Urine WBC Hyaline Casts Urine Mucus Ur Culture Indicated? Urine Eosinophils Ur Random Creatinine U Random Total Protein Ur Random Urea Nitrogn 07/02/16 07/02/16 07/02/16 09:44 09:44 09:44 WBC RBC Hgb Hct MCV MCH MCHC RDW Plt Count MPV Neut % (Auto) Lymph % (Auto) [place] % (Auto) Eos % (Auto) Baso % (Auto) Neut # (Auto) Lymph # (Auto) [place] # (Auto) Eos # (Auto) Baso # (Auto) Immature Gran % Nucleated RBC % Immature Gran # Nucleated RBCs # Sodium Potassium Chloride Carbon Dioxide Anion Gap BUN Creatinine GFR Calculation BUN/Creatinine Ratio Glucose Calculated Osmolality Calcium Magnesium B-Natriuretic Peptide Free T4 TSH 3rd Generation Urine Color Urine Appearance Urine pH Ur Specific [place] Urine Protein Urine Glucose (UA) Urine Ketones Urine Blood Urine Nitrate Urine Bilirubin Urine Urobilinogen Urine Leukocytes Urine RBC Urine WBC Hyaline Casts Urine Mucus Ur Culture Indicated? Urine Eosinophils Ur Random Creatinine 25 U Random Total Protein 10 Ur Random Urea Nitrogn 319 07/02/16 07/02/16 07/02/16 09:44 09:44 Unknown WBC RBC Hgb Hct MCV MCH MCHC RDW Plt Count MPV Neut % (Auto) Lymph % (Auto) [place] % (Auto) Eos % (Auto) Baso % (Auto) Neut # (Auto) Lymph # (Auto) [place] # (Auto) Eos # (Auto) Baso # (Auto) Immature Gran % Nucleated RBC % Immature Gran # Nucleated RBCs # Sodium Potassium Chloride Carbon Dioxide Anion Gap BUN Creatinine GFR Calculation BUN/Creatinine Ratio Glucose Calculated Osmolality Calcium Magnesium B-Natriuretic Peptide Free T4 1.19 TSH 3rd Generation 5.220 H Urine Color Straw Urine Appearance Clear Urine pH 6.0 Ur Specific [place] 1.004 Urine Protein Negative Urine Glucose (UA) Negative Urine Ketones Negative Urine Blood Small Urine Nitrate Negative Urine Bilirubin Negative Urine Urobilinogen < 2.0 H Urine Leukocytes Trace Urine RBC <1 Urine WBC 3 Hyaline Casts 1 Urine Mucus Occasional Ur Culture Indicated? Not indicated Urine Eosinophils 2 Ur Random Creatinine U Random Total Protein Ur Random Urea Nitrogn
[2016-07-02 17:00] LABS: Free T4 (Free Thyroxine) 1.19 NG/DL (0.76-1.46); Thyroid Stimulating Hormone 5.22 uIU/ml (0.358-3.74)
[2016-07-02] MEDS: miSOPROStol 200 MCG TABLET PO SCH ×2 (17:48→21:33)
[2016-07-02] MEDS: MONTELUKAST 10 MG TABLET PO SCH (21:33)
[2016-07-03 06:17] LABS: Basophils # 0.1 10*3/uL (0.0-0.2); Basophils % 0.5 % (0.0-0.8); Eosinophils # 0.2 10*3/uL (0.0-0.87); Eosinophils % 1.9 % (0.00-10.9); Hematocrit 40.4 VOL% (42.0-52.0); Hemoglobin 12.8 GM/DL (14.0-18.0); Immature Granulocytes % 0.6 %; Immature Granulocytes Absolute 0.06 #; Lymphocytes # 2.1 10*3/uL (1.4-4.0); Lymphocytes % 21.7 % (21.2-54.2); Mean Corpuscular HGB Conc 31.7 GM/DL (32-36); Mean Corpuscular Hemoglobin 33 PG (27-34); Mean Corpuscular Volume 102.8 FL (87-102); Mean Platelet Volume 10.4 FL (9.6-12.0); Monocytes # 0.8 10*3/uL (0.11-0.8); Monocytes % 8.4 % (1.7-12.7); Neutrophils # 6.4 10*3/uL (1.4-7.4); Neutrophils % 66.9 % (38.7-73.9); Platelet Count 206 T/CUMM (130-400); Red Blood Count 3.93 MC/CUMM (3.8-5.5); Red Cell Distribution Width 14.6 % (9.3-17.3); White Blood Count 9.6 T/CUMM (4-12)
[2016-07-03 06:47] LABS: Calcium 8.6 MG/DL (8.5-10.1)
[2016-07-03 06:48] LABS: Magnesium 2.5 MG/DL (1.8-2.4); Potassium 4.2 MMOL/L (3.5-5.1)
[2016-07-03] MEDS ORDERED: LEVOTHYROXINE 100 MCG TABLET PO SCH (07:00)
[2016-07-03] MEDS: ALBUTEROL/IPRATROPIUM 3 ML NEB RESP TX SCH ×2 (07:16→13:49)
[2016-07-03] MEDS: BUDESONIDE 0.5 MG/2 ML NEB RESP TX SCH (07:16)
--- NOTE | 2016-07-03 07:33 | EKG Report ---
Stationary ECG Study [facility] Test Date: 07/03/2016 7:33:24 AM Pat Name: IMAN AMADO Department: Room: 283 Gender: M Mobile Ui Developer: ADRIENNE : 1925 Requested by: Sav Miner Order Number: [id number] Reading MD: JOVITA SANCHEZ Intervals [place] Rate: 73 P: 999 MS: 0 QRS: 243 QRSD: 164 T: 22 QT: 419 QTc: 445 Interpretive Statements ATRIAL FIBRILLATION MARKED RIGHT AXIS DEVIATION RIGHT BUNDLE BRANCH BLOCK Electronically Signed On 07-06-16 12:12:51 CDT by JOVITA SANCHEZ [email or web address]
[2016-07-03] MEDS ORDERED: APIXABAN 2.5 MG TABLET PO SCH ×2 (09:30→21:00)
[2016-07-03] MEDS: POTASSIUM CHLORIDE 20 MEQ TABLET PO SCH (09:46)
[2016-07-03] MEDS: miSOPROStol 200 MCG TABLET PO SCH ×2 (09:46→13:06)
[2016-07-03] MEDS: ASPIRIN EC 81 MG TABLET PO SCH (09:46)
[2016-07-03] MEDS: FUROSEMIDE 40 MG/4 ML VIAL IV SCH (09:47)
[2016-07-03] MEDS: ALLOPURINOL 300 MG TABLET PO SCH (09:47)
[2016-07-03] MEDS: TAMSULOSIN 0.4 MG CAPSULE PO SCH (09:47)
[2016-07-03] MEDS: CHOLECALCIFEROL 1,000 UNIT TABLET PO SCH (09:47)
[2016-07-03] MEDS: LORATADINE 10 MG TABLET PO SCH (09:47)
[2016-07-03] MEDS: CYANOCOBALAMIN 500 MCG TABLET PO SCH (09:47)
[2016-07-03] MEDS: ISOSORBIDE MONONITRATE 30 MG TABLET PO SCH (09:47)
[2016-07-03] MEDS: FINASTERIDE 5 MG TABLET PO SCH (09:47)
--- NOTE | 2016-07-03 09:58 | Nephrology Progress Note ---
Nephrology - PN: Subj Interval history: Pt had a good night. States his breathing is better. More alert today. Urine studies revealed AIN. Started cytotec and stopped protinix. Creatinine improved to 1.8 for eGFR 37cc/min by CKD-EPI formula. Exam (PN)-Nephrology - Vital Signs Vital signs: Period Temp Pulse Resp BP Sys/Merino Pulse Ox Last 24 Hr 97.4 F-99.2 F 60-81 16-20 120-174/53-78 90-99 - General Appearance General appearance: well-developed, obese EENT: ATNC, PERRL, mucous membranes dry, vision intact, hearing diminished Neck: no JVD, no thyromegaly Respiratory: no kyphosis, clear Cardiology: no murmurs, no rub Gastrointestinal: normoactive bowel sounds, no tenderness, distended Integumentary: no rash, warm and dry Neurologic: no focal deficit, no asterixis, alert and oriented x3 Musculoskeletal: no deformities, no erythema Psychiatric: mood/affect appropriate, cooperative - Lab 07/03/16 04:47 07/03/16 04:47 Most recent lab results Calcium 8.6 MG/DL (8.5-10.1) 07/03/16 04:47 Magnesium 2.5 MG/DL (1.8-2.4) H 07/03/16 04:47 Assessment and Plan (1) AIN (acute interstitial nephritis) Problem details: urine eos very low sensitivity, but very specific. Most likely culprit in US 6 yrs running is PPIs. Status: Acute Assessment and plan: Continue cytotec or restart his home pepcid. Current Visit: Yes (2) CKD (chronic kidney disease) stage 3, GFR 30-59 ml/min Problem details: Improved to near baseline. Status: Acute Assessment and plan: Renally dose all meds for eGFR approx 37cc/min. Avoid nephrotoxins to include NSAIDs, aminoglycosides and IV contrast if possible. Avoid overdiuresis in pHTN. Current Visit: Yes (3) Pulmonary hypertension Status: Acute Current Visit: Yes
[2016-07-03 11:55] VITALS: BP 147/65
--- NOTE | 2016-07-03 12:05 | Discharge Summary ---
<Martir Kline - Last Filed: 07/03/16 13:33> Specialty Discharge - Follow Up or Referrals Follow up with: Sav Youssef MD [Physician] - 1 Week Discharge Plan - Discharge Data Disposition: Disch To Home/Self Care Condition at Discharge: Stable Discharge Diet: heart healthy Activity: resume usual activities as tolerated Hygiene: no restrictions Weight Bearing at Discharge: full weight bearing Driving: not until seen by doctor Contact your physician if you experience:: Shortness of breath - Discharge Medications New Apixaban [Eliquis] 2.5 mg PO BID #60 tablet Continue Cyanocobalamin (Vitamin B-12) [Vitamin B-12] 2,500 mcg SL QAM Cholecalciferol (Vitamin D3) [Vitamin D3] 1,000 unit PO QAM Allopurinol 300 mg PO QAM Isosorbide Mononitrate [Isosorbide Mononitrate ER] 30 mg PO QAM Furosemide 80 mg PO BID Finasteride 5 mg PO QAM Digoxin 125 mcg PO QAM dilTIAZem HCl [Dilt-Xr] 120 mg PO BID Potassium Chloride 20 meq PO BID Levothyroxine Tab [Synthroid Tab] 75 mcg PO 0700 Montelukast Tab [Singulair Tab] 10 mg PO BEDTIME Bisoprolol Fumarate 2.5 - 5 mg PO QAM Aspirin EC Tab 81 mg PO QAM Famotidine/Ca Carb/Mag Hydrox [Pepcid Complete Chew Tab] 1 tablet PO DAILY PRN PRN Reason: Heartburn Budesonide [Pulmicort Respules] 1 mg INH BID Losartan Potassium 25 mg PO QAM Tamsulosin [Flomax] 0.4 mg PO QAM Loratadine Tab [Claritin Tab] 10 mg PO QAM Discontinued Albuterol/Ipratropium Neb [Duoneb] 3 ml RESP TX TID - Follow Up or Referral Follow Up: Sav Youssef MD [Physician] - 1 Week - Forms/Instructions Instructions: Heart Failure (DC), Impaired Kidney Function (DC) Exam - Constitutional Vitals: Period Temp Pulse Resp BP Sys/Merino Pulse Ox Last 24 Hr 97.4 F-99.2 F 66-81 16-22 138-174/61-78 90-99 General appearance: over weight - Head Head exam: Present: normocephalic, atraumatic - Eye Eye exam: Present: EOMI Pupils: Present: HARMEET - ENT ENT exam: Present: normal exam - Neck Neck exam: Present: normal inspection - Respiratory Respiratory exam: Present: clear to auscultation bilaterally, other (No rales no wheezing) - Cardiovascular Cardiovascular exam: Present: irregular rhythm - GI/Abdominal GI/Abdominal exam: Present: normal bowel sounds, soft - Extremities Exam Extremities exam: Present: full ROM - Back Exam Back exam: Present: normal inspection - Neurological Exam Neurological exam: Present: alert, oriented X3, CN II-XII intact - Psychiatric Psychiatric exam: Present: normal affect, normal mood - Skin Skin exam: Present: normal color, warm, dry Discharge Results Labs on day of discharge: Labs from last 24 hours 07/03/16 07/03/16 07/03/16 04:47 04:47 04:47 WBC 9.6 RBC 3.93 Hgb 12.8 L Hct 40.4 L MCV 102.8 H MCH 33 MCHC 31.7 L RDW 14.6 Plt Count 206 MPV 10.4 Neut % (Auto) 66.9 Lymph % (Auto) 21.7 [place] % (Auto) 8.4 Eos % (Auto) 1.9 Baso % (Auto) 0.5 Neut # (Auto) 6.4 Lymph # (Auto) 2.1 [place] # (Auto) 0.8 Eos # (Auto) 0.2 Baso # (Auto) 0.1 Immature Gran % 0.6 Nucleated RBC % 0.0 Immature Gran # 0.06 Nucleated RBCs # 0.00 Sodium 143 Potassium 4.2 Chloride 101 Carbon Dioxide 33 H Anion Gap 13.2 BUN 50 H Creatinine 1.85 H GFR Calculation 37 BUN/Creatinine Ratio 27.00 H Glucose 108 H Calculated Osmolality 298.0 Calcium 8.6 Magnesium 2.5 H Free T4 TSH 3rd Generation Digoxin 1.00 07/02/16 Unknown WBC RBC Hgb Hct MCV MCH MCHC RDW Plt Count MPV Neut % (Auto) Lymph % (Auto) [place] % (Auto) Eos % (Auto) Baso % (Auto) Neut # (Auto) Lymph # (Auto) [place] # (Auto) Eos # (Auto) Baso # (Auto) Immature Gran % Nucleated RBC % Immature Gran # Nucleated RBCs # Sodium Potassium Chloride Carbon Dioxide Anion Gap BUN Creatinine GFR Calculation BUN/Creatinine Ratio Glucose Calculated Osmolality Calcium Magnesium Free T4 1.19 TSH 3rd Generation 5.220 H Digoxin DS: Provider Date of admission: 07/01/16 13:49 Primary care physician: . No PCP Attending physician on admission: Lefty Haywood MD Consults: 07/01/16 15:05 Consult to Physician [CONS] Routine Comment: Consulting Provider: Cardiology - [facility] When should Consulting Provider be notified: Now Person Notified: danika Date Notified: 07/01/16 07/01/16 15:28 Consult to Physician [CONS] Routine Comment: Consult Nephrology corporate communications associate tomorrow am Consulting Provider: Robert Sterling Consult to Specialist Group: Nephrology Person Notified: [place] Date Notified: 07/02/16 Time Notified: 09:00 Consult Notification Comment: [place] 0850 [place] [facility] 16:56 Consult to Pharmacy [CONS] Routine Reason for Pharmacy Consult: Adjust Meds Renal Funct Discharging clinician: Martir Kline MD <Kristin Estevez - Last Filed: 07/03/16 14:18> Hospital Course - Hospital Course Hospital Course: This is an 89 year old male that presented to the ED at [facility] as a lateral transfer from [facility] on 07/01 with a chief compliant of shortness of breath and weight gain. He has a past medical histroy of chronic obstructive pulmonary disease, hypertension, and congestive heart failure. He reported the onset of symptoms 1-2 weeks prior to presentation. In addition, he reported cough, headache, and peripheral edema. He is O2 dependent at home and as a result of these symptoms, he has slept upright in a recliner for comfort. He was admitted under the hospitalist services for continuation of care. At the time of admission, his renal function was impaired with a BUN of 61 and Creatinine 2.30. A nephrology consult was requested. In addition, a cardiology consult was requested to assist with the management of his cardiovascular disease. He was evaluated, treated and his condition improved. His condition is stable. Today, we feel that he is appropriate for discharge to follow-up with his PCP as directed.
--- NOTE | 2016-07-03 14:46 | ECHO Report ---
Dmitriy Valderrama Exam Date: 07/03/2016 11:22 Referring Physician: Technologist: Fanta Andre RDCS Age: 89 Ht (in): 68 Wt (lb): 203 Gender: M Exam Location: [facility] Echo Indications: Atrial fibrillation, Bradycardia, unspecified, Ascites, Primary pulmonary hypertension, Essential (primary) hypertension, Abnormal electrocardiogram [ECG] [EKG], CAD with previous CABG, Edema, unspecified, Dyspnea, unspecified, COPD, CRI, Elevated BNP BP: 174 / 77 HR: 87 Rhythm: Atrial fibrillation Technical Quality: fair to good IMPRESSIONS 1. Atrial fibrillation with controlled ventricular response. 2. Left ventricle is normal size. Function ejection fraction of 55%. No segmental wall motion abnormality is noted. 3. Right atrium is mildly enlarged. 4. Moderately increased left atrial size. 5. Aortic valves is anatomically normal without stenosis or regurgitation. 6. Mitral valve is thickened sclerotic with at worse very minimal to mild stenosis with mild regurgitation. 7. There is mild tricuspid regurgitation. 8. Moderate to severely elevated right-sided pressures. MEASUREMENTS (Male / Female) Normal Values 2D ECHO LV Diastolic Diameter PLAX 5.2 cm 4.2 - 5.9 / 3.9 - 5.3 cm LV Systolic Diameter PLAX 3.2 cm LV Fractional Shortening PLAX 37.6 % IVS Diastolic Thickness 1.0 cm 0.6 - 1.0 / 0.6 - 0.9 cm LVPW Diastolic Thickness 1.0 cm 0.6 - 1.0 / 0.6 - 0.9 cm RV Internal Dim ED PLAX 4.3 cm Aortic Root Diameter 3.6 cm LA Systolic Diameter LX 5.4 cm 3.0 - 4.0 / 2.7 - 3.8 cm DOPPLER TR Peak Velocity 362.0 cm/s TR Peak Gradient 52.4 mmHg FINDINGS Left Ventricle Normal left ventricular cavity size. Normal left ventricular wall thickness. Left ventricular ejection fraction is estimated at 55 %. No segmental wall motion abnormality noted. Right Ventricle The right ventricle is normal in size and function. Right Atrium The right atrium is mildly enlarged. Left Atrium Moderately increased left atrial size. Mitral Valve Mildly thickened and sclerotic mitral valve with mild mitral regurgitation. There is annular calcification present. Mitral valve mean gradient is 10 mmHg at a heart rate of 87 bpm. at worst mild mitral stenosis. Aortic Valve Morphologically normal aortic valve that is tricuspid without significant sclerosis or stenosis. There is no aortic regurgitation. Tricuspid Valve Morphologically normal tricuspid valve. Mild tricuspid valve regurgitation. Tricuspid regurgitation velocities suggest a PAP of 57- 62 mmHg. Pulmonic Valve Morphologically normal pulmonic valve. Trace pulmonary valve regurgitation. Pericardium Normal pericardium without effusion. Aorta Normal ascending aorta dimension. Sav Youssef MD (Electronically Signed) Final Date: 03 July 2016 14:45
--- NOTE | 2016-07-03 15:28 | Cardiology Progress Note ---
Assessment and Plan (1) Ascites Status: Acute Assessment and plan: No ascites on ultrasound. Current Visit: Yes (2) Pulmonary hypertension Status: Acute Assessment and plan: No significant portal hypertension with echocardiogram Current Visit: Yes (3) Elevated brain natriuretic peptide (BNP) level Status: Acute Assessment and plan: This may be multifactorial certainly with his EF being normal to see any gross reason for this to be elevated significantly. Current Visit: Yes (4) Bradycardia Status: Resolved Assessment and plan: This secondary to his digoxin. We will monitor this. Current Visit: Yes (5) Hypertension Status: Chronic Assessment and plan: This is stable at this time. Current Visit: Yes (6) COPD (chronic obstructive pulmonary disease) Status: Chronic Assessment and plan: This is stable at this time. Current Visit: Yes (7) Atrial fibrillation Status: Acute Assessment and plan: Duration is actually a number and his rates are managed. On anticoagulation at this time. Current Visit: Yes (8) Chronic renal insufficiency Status: Chronic Assessment and plan: Dr. Sterling is assisting us in this. Current Visit: Yes (9) Coronary artery disease Status: Chronic Assessment and plan: Clinically this is stable without angina symptomatology or anginal equivalent. Current Visit: Yes (10) History of coronary artery bypass graft Status: Chronic Assessment and plan: He had this in 2004 as discussed in history present illness. Current Visit: Yes (11) Abnormal ECG Status: Acute Current Visit: Yes (12) Right bundle branch block Status: Chronic Assessment and plan: This appears to be chronic based on old ECGs. Current Visit: Yes (13) Left anterior fascicular block Status: Chronic Assessment and plan: Chronic based on outside records. Current Visit: Yes (14) Peripheral edema Status: Acute Assessment and plan: This is resolving. Current Visit: Yes Cardiology - PN: Subj Interval history: Patient is feeling much better. He has diuresed some. His heart rate is up and will not require pacemaker. His digoxin level is 1.0. I suspect his digoxin was causing his bradycardia. We will allow his digoxin, and down. We have started him on eloquent is to protect him from stroke with his atrial fibrillation. The exact duration of this is unknown. Echocardiogram reveals normal left ventricle size systolic function with dilation his left and right atrium. He has some mitral aortic valve thickening sclerosing but no significant Doppler abnormalities. I think he can be discharged and follow with me in one week. Exam (Progress Note) - Constitutional Vitals: Period Temp Pulse Resp BP Sys/[place] Pulse Ox Last 24 Hr 97.6 F-99.2 F 67-85 16-22 147-174/61-78 90-99 Exam: General appearance: Over weight, no acute distress Head exam: normal inspection, atraumatic Eye exam: Pupils are equal and reactive. EOMI. There is no trauma. Moist mucous membranes. Ear exam: Anatomically normal. Normal auditory acuity to conversation. Oral exam: No significant oral lesions. Chronic dental issues. Neck exam: normal inspection no JVD. No carotid bruit. Trachea is in midline. Respiratory exam: clear to auscultation bilaterally posteriorly and anteriorly with good air movement. No rales, rhonchi or wheezes. Cardiovascular exam: regular rate and rhythm, with 2/6 systolic murmur over the right and left upper chest but no gallop or rub. No precordial lift. No bruits over the major arteries. Chest wall/torso: Anatomically normal. No tenderness, deformity Peripheral Pulses: One to 2 + throughout. GI/Abdominal exam: normal bowel sounds, soft and nontender, no abdominal bruits or pulsatile masses. His abdomen is protuberant. Musculoskeletal/Extremities exam: trace pitting pretibial and ankle edema, atraumatic Neurological exam: alert, oriented X3. There is no gross neurologic deficits. Psychiatric exam: normal affect, normal mood. Cognitive function is grossly intact. Skin exam: normal color, warm. No rashes or other skin lesions. Result/EKG - Labs CBC & BMP: 07/03/16 04:47 07/03/16 04:47 Lab Results: I have reviewed the past 24 hour labs Labs: Laboratory Results - last 24 hr 07/02/16 07/03/16 07/03/16 Unknown 04:47 04:47 WBC 9.6 RBC 3.93 Hgb 12.8 L Hct 40.4 L MCV 102.8 H MCH 33 MCHC 31.7 L RDW 14.6 Plt Count 206 MPV 10.4 Neut % (Auto) 66.9 Lymph % (Auto) 21.7 [place] % (Auto) 8.4 Eos % (Auto) 1.9 Baso % (Auto) 0.5 Neut # (Auto) 6.4 Lymph # (Auto) 2.1 [place] # (Auto) 0.8 Eos # (Auto) 0.2 Baso # (Auto) 0.1 Immature Gran % 0.6 Nucleated RBC % 0.0 Immature Gran # 0.06 Nucleated RBCs # 0.00 Sodium 143 Potassium 4.2 Chloride 101 Carbon Dioxide 33 H Anion Gap 13.2 BUN 50 H Creatinine 1.85 H GFR Calculation 37 BUN/Creatinine Ratio 27.00 H Glucose 108 H Calculated Osmolality 298.0 Calcium 8.6 Magnesium 2.5 H Free T4 1.19 TSH 3rd Generation 5.220 H Digoxin 07/03/16 04:47 WBC RBC Hgb Hct MCV MCH MCHC RDW Plt Count MPV Neut % (Auto) Lymph % (Auto) [place] % (Auto) Eos % (Auto) Baso % (Auto) Neut # (Auto) Lymph # (Auto) [place] # (Auto) Eos # (Auto) Baso # (Auto) Immature Gran % Nucleated RBC % Immature Gran # Nucleated RBCs # Sodium Potassium Chloride Carbon Dioxide Anion Gap BUN Creatinine GFR Calculation BUN/Creatinine Ratio Glucose Calculated Osmolality Calcium Magnesium Free T4 TSH 3rd Generation Digoxin 1.00 - Impressions Impressions: Atrial fibrillation with heart rates in the 70s Specialty Discharge - Follow Up or Referrals Follow up with: Sav Youssef MD [Physician] - 1 Week Robert Sterling MD [Physician] -
== END 2016-07-03 15:55 | disposition home or self-care (01) | DRG 291 ==
LOC: EDBD → EDUNIT# → N.ED 13:04 → N.EDINP 13:49 → SUATTDRO 13:49 → N.EDINP 16:20 → N.TELEN 16:29
PROVIDERS: ADMIT Internal Medicine; ATTEND Internal Medicine Infectious Disease